=== PATIENT | female | born 1970 | race Caucasian/White ===

== ENCOUNTER → 2024-05-19 | Outpatient (CLI) | payer BC, SELFPAY ==
[2024-05-20 09:39] LABS: BVAG Candida Negative (Negative); Bacterial Vaginosis Markers Negative (Negative); Candida glabrata Negative (Negative); Candida krusei PCR Negative (Negative); Trichomonas Negative (Negative)
== END | disposition home or self-care (01) ==
LOC: SLDO 15:48
PROVIDERS: Referring Provider Specialist; Visit Provider Specialist
DX: B37.89 Other sites of candidiasis (principal); N76.0 Acute vaginitis; A59.01 Trichomonal vulvovaginitis
CPT/HCPCS: 81514

== ENCOUNTER → 2024-05-27 | Outpatient (CLI) | payer OTHER, SELFPAY ==
--- NOTE | 2024-05-27 14:49 | XR_ITS ---
Examination: Knee, right , 3 views Technique: Knee AP, lateral, oblique 3 views Date and time of exam: May 27, 2024 1500 hours INDICATIONS: Patient fell yesterday with injury to the knee, knee pain. FINDINGS: No acute fracture No dislocation IMPRESSION: No acute fracture
--- NOTE | 2024-05-27 14:49 | XR_ITS ---
Examination: Wrist, right 3 views Technique: Wrist AP, oblique, lateral 3 views Date and time of exam: May 27, 2024 1500 hours INDICATIONS: Seizure this yesterday, wrist pain FINDINGS: Moderate osteopenia No acute fracture No dislocation IMPRESSION: No acute fracture
--- NOTE | 2024-05-27 14:49 | XR_ITS ---
Examination: Lumbar spine, 5 views Technique: Lumbar spine AP, lateral, coned lateral lower lumbar spine, bilateral obliques 5 views Exam date and time: May 27, 2024 1500 hours INDICATIONS: Patient fell yesterday with injury to the lower back, lower back pain. FINDINGS: Moderate osteopenia Advanced facet arthropathy at the lowest lumbar level Chronic osteoporotic mild compression L1 No acute lumbar fracture Moderate disc narrowing L5-S1 IMPRESSION: No acute lumbar fracture
== END | disposition home or self-care (01) ==
LOC: CDIM 14:31
PROVIDERS: PCP Family Medicine; Referring Provider Physician Assistant; Visit Provider Physician Assistant
DX: S39.012A Strain of muscle, fascia and tendon of lower back, initial encounter (principal); S83.91XA Sprain of unspecified site of right knee, initial encounter; S63.501A Unspecified sprain of right wrist, initial encounter; W19.XXXA Unspecified fall, initial encounter
CPT/HCPCS: 72110; 73110; 73560

== ENCOUNTER → 2024-06-26 | Outpatient (CLI) | payer BC, SELFPAY ==
--- NOTE | 2024-06-26 10:30 | XR_ITS ---
Examination: Screening digital mammography, bilateral Computer aided detection 3-D breast Tomosynthesis, bilateral Date and time of exam: June 26, 2024 11:23 AM Comparison April 14, 2021 Indication: Screening Technique: Nonmagnified MLO, CC views of the breasts to been obtained, reconstructed from 3-D Tomosynthesis images. R2 computer aided detection program utilized for evaluation of suspicious masses and/or abnormal calcifications. 3-D Tomosynthesis images obtained. Findings: The breasts are heterogeneously dense, which may obscure small masses Smaller circumscribed nodule upper outer right breast, currently 7 mm compared to prior studies Implants appear intact No interval suspicious masses Impression: BI-RADS category II: Benign Findings. Recommend 1 year follow-up mammogram.
== END | disposition home or self-care (01) ==
LOC: CDIM 10:10
PROVIDERS: Referring Provider Specialist; Visit Provider Specialist
DX: Z12.31 Encounter for screening mammogram for malignant neoplasm of breast (principal); R92.323 Mammographic fibroglandular density, bilateral breasts
CPT/HCPCS: 77063; 77067

== ENCOUNTER → 2025-05-25 | Outpatient (CLI) | payer BC, SELFPAY ==
[2025-05-27 16:03] LABS: BVAG Candida Negative (Negative); Bacterial Vaginosis Markers Negative (Negative); Candida glabrata Negative (Negative); Candida krusei PCR Negative (Negative); Trichomonas Negative (Negative)
== END | disposition home or self-care (01) ==
LOC: SLDO 14:12
PROVIDERS: Referring Provider Physician Assistant Medical; Visit Provider Physician Assistant Medical
DX: B37.89 Other sites of candidiasis (principal); N76.0 Acute vaginitis; A59.01 Trichomonal vulvovaginitis
CPT/HCPCS: 81514